=== PATIENT | female | born 1945 | race Caucasian/White ===

== ENCOUNTER 2016-10-02 14:41 | Inpatient (IN) | payer OTHER ==
[~2016-10-02] VITALS: Ht 167.6 cm; Wt 70.2 kg
[2016-10-02] MEDS ORDERED: ACETAMINOPHEN 325 MG TAB PO PRN (14:45)
[2016-10-02] MEDS ORDERED: SALINE FLUSH 10 ML FLUSH PRN ×2 (14:45→19:10)
[2016-10-02] MEDS ORDERED: GLUCAGON 1 MG VIAL IM PRN (19:10)
[2016-10-02] MEDS ORDERED: DEXTROSE 50% SYRINGE 50 ML IV PRN (19:10)
[2016-10-02] MEDS ORDERED: BISACODYL 10 MG SUPP RECTAL PRN (19:10)
[2016-10-02] MEDS ORDERED: MAG HYDROX 30 ML UDC PO PRN (19:10)
[2016-10-02] MEDS: DUONEB INH SCH ×2 (19:10→22:27)
[2016-10-02] MEDS ORDERED: ALU/MAG/SIM 30 ML UDC PO PRN (19:10)
[2016-10-02] MEDS ORDERED: BISACODYL EC 5 MG TAB PO PRN (19:10)
[2016-10-02 19:23] VITALS: BP_SYST 134; RESP 18; TEMP 98.1
[2016-10-02] MEDS ORDERED: SALINE FLUSH 10 ML FLUSH SCH (20:00)
[2016-10-02 20:51] VITALS: BP_SYST 134; RESP 18; TEMP 98.1
[2016-10-02 20:54] VITALS: Ht 167.6 cm; Wt 70.2 kg
[2016-10-02] MEDS ORDERED: PNEUMO VAC 25 MCG/0.5 ML VL IM.VACC ONE (21:40)
[2016-10-02] MEDS ORDERED: Flu Vaccine Quadrivalent 60 MCG/0.5 ML IM.VACC ONE (21:40)
[2016-10-02 22:32] VITALS: RESP 18
[2016-10-02] MEDS: Furosemide 40 MG/4 ML VIAL IV SCH (23:15)
[2016-10-02] MEDS: ENOXAPARIN 30 MG/0.3 ML SYR SUBQ SCH (23:20)
[2016-10-02] MEDS: SALINE FLUSH 10 ML FLUSH SCH (23:21)
[2016-10-02] MEDS: LEVOFLOXACIN 750 MG/150 ML 150 ML IV SCH (23:50)
[2016-10-03] VITALS (9 sets, daily range): BP systolic 82–147; RESP 16–20; TEMP 97.6–98.4
[2016-10-03] MEDS: DUONEB INH SCH ×6 (02:22→22:26)
[2016-10-03] MEDS ORDERED: SODIUM CHLORIDE 0.9% FLUSH BAG 500 ML IV SCH (06:00)
[2016-10-03] MEDS: PANTOPRAZOLE 40 MG TAB PO SCH (07:53)
[2016-10-03] MEDS: SODIUM CHLORIDE 0.9% FLUSH BAG 500 ML IV SCH (07:54)
[2016-10-03] MEDS ORDERED: KCL 20 MEQ/15 ML UDC PO ONE (08:50)
[2016-10-03] MEDS: SALINE FLUSH 10 ML FLUSH SCH ×2 (09:31→21:56)
[2016-10-03] MEDS: Furosemide 40 MG/4 ML VIAL IV SCH ×2 (09:32→17:26)
[2016-10-03] MEDS: LEVOFLOXACIN 750 MG/150 ML 150 ML IV SCH (09:32)
[2016-10-03] MEDS: ENOXAPARIN 30 MG/0.3 ML SYR SUBQ SCH (09:33)
[2016-10-03] MEDS: METHYLPRED SOD SUCC 40 MG VIAL IV SCH ×2 (14:36→17:26)
[2016-10-04] MEDS: METHYLPRED SOD SUCC 40 MG VIAL IV SCH ×3 (00:47→18:34)
[2016-10-04] MEDS: DUONEB INH SCH ×6 (02:16→22:26)
[2016-10-04 03:40] VITALS: BP_SYST 151; RESP 16; TEMP 98.1
[2016-10-04] MEDS ORDERED: MISSING DOSE XX ONE (06:55)
[2016-10-04 07:40] VITALS: BP_SYST 116; RESP 20; TEMP 97.7
[2016-10-04] MEDS: PANTOPRAZOLE 40 MG TAB PO SCH (07:44)
[2016-10-04] MEDS: SODIUM CHLORIDE 0.9% FLUSH BAG 500 ML IV SCH (07:45)
[2016-10-04] MEDS: SALINE FLUSH 10 ML FLUSH SCH ×2 (08:34→20:43)
[2016-10-04] MEDS: Furosemide 40 MG/4 ML VIAL IV SCH ×2 (08:37→18:35)
[2016-10-04] MEDS: LEVOFLOXACIN 750 MG/150 ML 150 ML IV SCH (08:37)
[2016-10-04] MEDS: ENOXAPARIN 30 MG/0.3 ML SYR SUBQ SCH (08:38)
[2016-10-04 11:14] VITALS: BP_SYST 108; RESP 18; TEMP 97.8
[2016-10-04] MEDS: LISINOPRIL 2.5 MG TAB PO SCH (13:13)
[2016-10-04] MEDS: Carvedilol 6.25 MG TAB PO SCH ×2 (13:13→20:43)
[2016-10-04 15:47] VITALS: BP_SYST 116; RESP 18; TEMP 97.9
[2016-10-04] MEDS: ACETAMINOPHEN 325 MG TAB PO PRN (15:48)
[2016-10-04 19:13] VITALS: BP_SYST 110; RESP 18; TEMP 98.4
[2016-10-04] MEDS ORDERED: LEVEMIR INSULIN SUBQ SCH (21:00)
[2016-10-04 22:37] VITALS: BP_SYST 127; RESP 18; TEMP 98
[2016-10-05] MEDS: TEMAZEPAM 15 MG CAP PO PRN ×2 (00:02→20:31)
[2016-10-05] MEDS: METHYLPRED SOD SUCC 40 MG VIAL IV SCH ×3 (00:24→20:31)
[2016-10-05] MEDS: DUONEB INH SCH ×6 (02:21→22:19)
[2016-10-05 04:00] VITALS: BP_SYST 120; RESP 16; TEMP 98.2
[2016-10-05] MEDS: SODIUM CHLORIDE 0.9% FLUSH BAG 500 ML IV SCH (06:59)
[2016-10-05] MEDS: PANTOPRAZOLE 40 MG TAB PO SCH (06:59)
[2016-10-05 07:48] VITALS: BP_SYST 107; RESP 18; TEMP 98
[2016-10-05] MEDS: SALINE FLUSH 10 ML FLUSH SCH ×2 (08:48→20:31)
[2016-10-05] MEDS: LEVOFLOXACIN 750 MG/150 ML 150 ML IV SCH (08:49)
[2016-10-05] MEDS: LISINOPRIL 2.5 MG TAB PO SCH (08:49)
[2016-10-05] MEDS: Carvedilol 6.25 MG TAB PO SCH ×2 (08:49→20:31)
[2016-10-05] MEDS: ENOXAPARIN 30 MG/0.3 ML SYR SUBQ SCH (08:50)
[2016-10-05] MEDS: Furosemide 40 MG/4 ML VIAL IV SCH ×2 (09:11→17:45)
[2016-10-05 10:12] VITALS: BP_SYST 121; RESP 18; TEMP 97.7
[2016-10-05 15:41] VITALS: BP_SYST 122; RESP 18; TEMP 97.7
[2016-10-05 19:23] VITALS: BP_SYST 112; RESP 18; TEMP 97.3
[2016-10-05] MEDS ORDERED: LEVEMIR INSULIN SUBQ SCH (21:00)
[2016-10-05] MEDS: ACETAMINOPHEN 325 MG TAB PO PRN (22:17)
[2016-10-05 23:17] VITALS: BP_SYST 124; RESP 18; TEMP 98
[2016-10-06] MEDS: DUONEB INH SCH ×6 (02:07→22:16)
[2016-10-06 03:27] VITALS: BP_SYST 116; RESP 18; TEMP 97.7
[2016-10-06] MEDS: BACITRACIN TOPICAL SCH ×2 (06:00→06:10)
[2016-10-06] MEDS: PANTOPRAZOLE 40 MG TAB PO SCH (06:09)
[2016-10-06] MEDS: SODIUM CHLORIDE 0.9% FLUSH BAG 500 ML IV SCH (06:09)
[2016-10-06 07:46] VITALS: BP_SYST 126; RESP 18; TEMP 97.8
[2016-10-06] MEDS: SALINE FLUSH 10 ML FLUSH SCH ×2 (08:00→20:10)
[2016-10-06] MEDS ORDERED: LEVEMIR INSULIN SUBQ ONE (08:20)
[2016-10-06] MEDS: PREDNISONE 20 MG TAB PO SCH (09:33)
[2016-10-06] MEDS: LEVOFLOXACIN 750 MG TAB PO SCH (09:33)
[2016-10-06] MEDS: Furosemide 40 MG TAB PO SCH (09:33)
[2016-10-06] MEDS: ENOXAPARIN 30 MG/0.3 ML SYR SUBQ SCH (09:34)
[2016-10-06] MEDS: Carvedilol 6.25 MG TAB PO SCH ×2 (09:34→20:08)
[2016-10-06] MEDS: LISINOPRIL 2.5 MG TAB PO SCH (09:34)
[2016-10-06 11:01] VITALS: BP_SYST 113; RESP 18; TEMP 98.7
[2016-10-06 15:10] VITALS: BP_SYST 100; RESP 18; TEMP 97.8
[2016-10-06] MEDS: ACETAMINOPHEN 325 MG TAB PO PRN (19:04)
[2016-10-06 19:36] VITALS: BP_SYST 125; RESP 20; TEMP 97.9
[2016-10-06] MEDS: TEMAZEPAM 15 MG CAP PO PRN (20:08)
[2016-10-06] MEDS: LEVEMIR INSULIN SUBQ SCH (20:09)
[2016-10-06] MEDS: METHYLPRED SOD SUCC 40 MG VIAL IV SCH (21:17)
[2016-10-06 22:33] VITALS: BP_SYST 112; RESP 18; TEMP 98.2
[2016-10-07] MEDS: DUONEB INH SCH ×7 (02:17→22:24)
[2016-10-07 04:23] VITALS: BP_SYST 106; RESP 20; TEMP 98.1
[2016-10-07] MEDS: SODIUM CHLORIDE 0.9% FLUSH BAG 500 ML IV SCH (05:47)
[2016-10-07] MEDS: PANTOPRAZOLE 40 MG TAB PO SCH (05:47)
[2016-10-07] MEDS: BACITRACIN TOPICAL SCH ×2 (05:47→13:01)
[2016-10-07 07:55] VITALS: BP_SYST 125; RESP 18; TEMP 97.6
[2016-10-07] MEDS: ENOXAPARIN 30 MG/0.3 ML SYR SUBQ SCH (09:28)
[2016-10-07] MEDS: Carvedilol 6.25 MG TAB PO SCH ×2 (09:28→20:15)
[2016-10-07] MEDS: LISINOPRIL 2.5 MG TAB PO SCH (09:28)
[2016-10-07] MEDS: Furosemide 40 MG TAB PO SCH (09:28)
[2016-10-07] MEDS: PREDNISONE 20 MG TAB PO SCH (09:28)
[2016-10-07] MEDS: LEVOFLOXACIN 750 MG TAB PO SCH (09:28)
[2016-10-07] MEDS: SALINE FLUSH 10 ML FLUSH SCH ×2 (09:29→20:16)
[2016-10-07 13:15] VITALS: BP_SYST 119; RESP 18; TEMP 93.4
[2016-10-07] MEDS: ACETAMINOPHEN 325 MG TAB PO PRN (15:36)
[2016-10-07 19:59] VITALS: BP_SYST 126; RESP 20; TEMP 98.4
[2016-10-07] MEDS: TEMAZEPAM 15 MG CAP PO PRN (20:15)
[2016-10-07] MEDS: LEVEMIR INSULIN SUBQ SCH (20:16)
[2016-10-07 23:12] VITALS: BP_SYST 113; RESP 18; TEMP 98.2
[2016-10-08 02:21] VITALS: BP_SYST 118; RESP 20; TEMP 98.2
[2016-10-08] MEDS: DUONEB INH SCH ×2 (02:23→06:54)
[2016-10-08] MEDS: PANTOPRAZOLE 40 MG TAB PO SCH (05:03)
[2016-10-08] MEDS: BACITRACIN TOPICAL SCH ×2 (05:03→08:46)
[2016-10-08] MEDS: SODIUM CHLORIDE 0.9% FLUSH BAG 500 ML IV SCH (05:03)
[2016-10-08 07:09] VITALS: BP_SYST 128; RESP 20; TEMP 98.4
[2016-10-08] MEDS: SALINE FLUSH 10 ML FLUSH SCH (08:00)
[2016-10-08] MEDS: ENOXAPARIN 30 MG/0.3 ML SYR SUBQ SCH (08:47)
[2016-10-08] MEDS: Furosemide 40 MG TAB PO SCH (08:47)
[2016-10-08] MEDS: LISINOPRIL 2.5 MG TAB PO SCH (08:47)
[2016-10-08] MEDS: LEVOFLOXACIN 750 MG TAB PO SCH (08:47)
[2016-10-08] MEDS: Carvedilol 6.25 MG TAB PO SCH (08:48)
[2016-10-08] MEDS ORDERED: PREDNISONE 20 MG TAB PO SCH (09:00)
[2016-10-08] MEDS ORDERED: MISSING DOSE XX ONE (09:20)
[2016-10-08] MEDS: ACETAMINOPHEN 325 MG TAB PO PRN (09:24)
[2016-10-08 10:40] VITALS: BP_SYST 128; RESP 20; TEMP 98.4
== END 2016-10-08 10:59 | disposition home or self-care (01) | DRG 292 ==
LOC: ENRESERVDT → ENRESERVTM → 4NT 17:54 → ENPENDDIS 17:54
PROVIDERS: ADMIT Family Medicine; ATTEND Family Medicine
DX: I11.0 Hypertensive heart disease with heart failure (principal); J44.1 Chronic obstructive pulmonary disease with (acute) exacerbation; K55.9 Vascular disorder of intestine, unspecified; E11.40 Type 2 diabetes mellitus with diabetic neuropathy, unspecified; E08.65 Diabetes mellitus due to underlying condition with hyperglycemia; E11.51 Type 2 diabetes mellitus with diabetic peripheral angiopathy without gangrene; D64.9 Anemia, unspecified; E09.9 Drug or chemical induced diabetes mellitus without complications; I50.43 Acute on chronic combined systolic (congestive) and diastolic (congestive) heart failure; I25.5 Ischemic cardiomyopathy; I25.10 Atherosclerotic heart disease of native coronary artery without angina pectoris; Z79.4 Long term (current) use of insulin; F17.210 Nicotine dependence, cigarettes, uncomplicated; K21.9 Gastro-esophageal reflux disease without esophagitis; F32.9 Major depressive disorder, single episode, unspecified; E53.8 Deficiency of other specified B group vitamins; T38.0X5A Adverse effect of glucocorticoids and synthetic analogues, initial encounter; Z95.0 Presence of cardiac pacemaker
CPT/HCPCS: 71020; 80053; 80061; 82550; 82553; 82947; 83735; 83880; 84439; 84443; 84484; 85025; 90732; 93005; 94640; 99231; 99232; 99233; 99238